=== PATIENT | female | born 1925 | race Caucasian/White ===

== ENCOUNTER 2016-05-18 17:58 | Outpatient (CLI) | payer MEDICARE, OTHER | END 2016-05-18 17:59 | disposition critical access hospital (66) | DX: S01.81XA Laceration without foreign body of other part of head, initial encounter (principal); W18.30XA Fall on same level, unspecified, initial encounter; Y92.019 Unspecified place in single-family (private) house as the place of occurrence of the external cause | CPT/HCPCS: A0425; A0429 ==

== ENCOUNTER 2016-05-18 18:20 | Observation (INO) | payer MEDICARE, OTHER ==
[2016-05-18] MEDS ORDERED: TETANUS/DIPHTHERIA/PERTUSSIS 0.5 ML SYRINGE IM ONE (18:32)
[2016-05-18] MEDS ORDERED: ACETAMINOPHEN 325 MG TABLET PO STA (18:35)
[2016-05-18] MEDS ORDERED: ACETAMINOPHEN 325 MG TABLET PO ONE (18:43)
[2016-05-18] MEDS ORDERED: TETANUS/DIPHTHERIA TOXOID 0.5 ML SYRINGE IM ONE (18:45)
[2016-05-18] MEDS ORDERED: ONDANSETRON 4 MG/2 ML VIAL IVP PRN (20:30)
[2016-05-18] MEDS ORDERED: SODIUM CHLORIDE FLUSH 0.9% 10 ML SYRINGE IVP PRN (20:30)
[2016-05-18] MEDS ORDERED: ACETAMINOPHEN 325 MG TABLET PO PRN (22:01)
[2016-05-18] MEDS: HEPARIN 5,000 UNIT/ML VIAL SUBQ SCH (22:25)
[2016-05-18] MEDS: SODIUM CHLORIDE FLUSH 0.9% 10 ML SYRINGE IVP SCH (22:25)
[2016-05-18] MEDS: HYDROcod/ACETAM 5/325 MG TABLET PO PRN (22:28)
[2016-05-19] MEDS: HYDROcod/ACETAM 5/325 MG TABLET PO PRN (05:39)
[2016-05-19] MEDS: SODIUM CHLORIDE FLUSH 0.9% 10 ML SYRINGE IVP SCH (05:41)
[2016-05-19] MEDS: HEPARIN 5,000 UNIT/ML VIAL SUBQ SCH (08:16)
[2016-05-19] MEDS ORDERED: POLYETHYLENE GLYCOL 3350 17 GM PACKET PO SCH (09:00)
[2016-05-19] MEDS ORDERED: CAPTOPRIL 12.5 MG TABLET PO SCH (09:00)
[2016-05-19] MEDS ORDERED: OXYBUTYNIN 5MG TABLET PO SCH (09:00)
[2016-05-19] MEDS ORDERED: LISINOPRIL 5 MG TABLET PO SCH (10:30)
[2016-05-19] MEDS ORDERED: SULFAMETH/TRIMETH DS 800/160 MG TABLET PO SCH (21:00)
== END 2016-05-19 18:47 ==
DX: S82.141A Displaced bicondylar fracture of right tibia, initial encounter for closed fracture (principal); S01.81XA Laceration without foreign body of other part of head, initial encounter; N39.0 Urinary tract infection, site not specified; W01.10XA Fall on same level from slipping, tripping and stumbling with subsequent striking against unspecified object, initial encounter; F03.90 Unspecified dementia, unspecified severity, without behavioral disturbance, psychotic disturbance, mood disturbance, and anxiety; M85.88 Other specified disorders of bone density and structure, other site; M50.31 Other cervical disc degeneration, high cervical region; M47.892 Other spondylosis, cervical region; M43.12 Spondylolisthesis, cervical region; I10 Essential (primary) hypertension; L72.3 Sebaceous cyst; Y93.9 Activity, unspecified; Y92.000 Kitchen of unspecified non-institutional (private) residence as the place of occurrence of the external cause; Y99.9 Unspecified external cause status; Z79.899 Other long term (current) drug therapy; Z91.81 History of falling
CPT/HCPCS: 12011; 29530; 36415; 70450; 72125; 73564; 80048; 80053; 81001; 83690; 84484; 85025; 90471; 90714; 93005; 96372; 97162; 97165; 97530; 99284; 99285; A9270; G0378; G8978; G8979; G8980